=== PATIENT | male | born 1995 | race African-American/Black ===

== ENCOUNTER 2025-01-18 19:22 | Emergency (ER) | payer OTHER, MEDICAID ==
[~2025-01-18] VITALS: Ht 177.8 cm; Wt 100.3 kg
[2025-01-18 19:49] VITALS: BP 150/98; PULSE 86; RESP 16; TEMP 97.8; O2SAT 97
[2025-01-18] MEDS ORDERED: IBUP-1456 PO (20:16)
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
--- NOTE | 2025-01-18 20:34 | DVH ---
CLINICAL INDICATION: right knee pain TECHNIQUE: 3 radiographic views of the right knee were obtained. Comparison: None FINDINGS/IMPRESSION: There is no evidence of acute fracture or dislocation. The visualized joint space is well maintained. The alignment is anatomical. There is no radiopaque foreign body.
--- NOTE | 2025-01-18 20:35 | DVH ---
CLINICAL INDICATION: left shoulder pain TECHNIQUE: 3 radiographic views of the left shoulder were obtained. Comparison: None FINDINGS/IMPRESSION: There is no evidence of acute fracture or dislocation. The visualized joint space is well maintained. The alignment is anatomical. There is no radiopaque foreign body.
--- NOTE | 2025-01-18 20:35 | DVH ---
INDICATION: lumbar back pain COMPARISON: None TECHNIQUE: AP and lateral radiographs of the lumbar spine. FINDINGS: There is normal alignment of the lumbar spine. The lumbar vertebral bodies and T12 are normal in appe arance with no evidence of fracture. The intervertebral disc spaces are normal. Facet joints appear u nremarkable. IMPRESSION: No abnormality demonstrated.
--- NOTE | 2025-01-18 20:36 | DVH ---
CT HEAD WITHOUT CONTRAST INDICATION: head injury COMPARISON: None TECHNIQUE: CT of the head without intravenous contrast. RADIATION DOSE: CTDIvol: mGy, DLP: mGy*cm FINDINGS: There is no evidence of intracranial hemorrhage, infarct, extra-axial collection, mass effect, midli ne shift, herniation or hydrocephalus. The ventricles, sulci and cisterns are normal. The pollard-white differentiation is normal. Visualized paranasal sinuses and mastoid air cells are clear. Soft tissues and osseous structures are unremarkable. IMPRESSION: No intracranial abnormality.
== END 2025-01-18 20:40 | disposition home or self-care (01) ==
LOC: ER 19:22
DX: S39.012A Strain of muscle, fascia and tendon of lower back, initial encounter (principal); S46.912A Strain of unspecified muscle, fascia and tendon at shoulder and upper arm level, left arm, initial encounter; S83.91XA Sprain of unspecified site of right knee, initial encounter; S09.8XXA Other specified injuries of head, initial encounter; V89.2XXA Person injured in unspecified motor-vehicle accident, traffic, initial encounter; Y93.89 Activity, other specified; Y92.410 Unspecified street and highway as the place of occurrence of the external cause; Y99.8 Other external cause status
CPT/HCPCS: 29505; 70450; 72100; 73030; 73562